=== PATIENT | female | born 1975 | race Caucasian/White ===

== ENCOUNTER 2017-02-13 15:24 | Emergency (ER) | payer MEDICAID, OTHER ==
[~2017-02-13] VITALS: Ht 167.6 cm; Wt 82.0 kg
[~2017-02-13 15:24] MED LIST: ALBU6.7H2; ASPI-867; ATIVAN; COR12; FURO80TA87; HYDR-4133; HYDR-4134; ISOS10TA2; LISI40TA4; [UNRECOGNIZED DRUG - OTHER]
[2017-02-13 15:43] VITALS: BP 116/76
== END 2017-02-13 18:16 | disposition left against medical advice (07) ==
LOC: ER 15:24
DX: Z53.21 Procedure and treatment not carried out due to patient leaving prior to being seen by health care provider (principal)